=== PATIENT | female | born 1995 | race Caucasian/White ===

== ENCOUNTER 2021-11-24 09:08 | Emergency (ER) | payer OTHER ==
[2021-11-24 10:55] LABS: Bilirubin Neg (Negative); Blood, Urine Negative (Negative); Clarity Cloudy (Clear); Glucose, Urine (Dipstick) Normal (Negative); Ketone, Urine 150 mg/dL (Negative); Leukocyte 100 (Negative); Nitrite Negative (Negative); Protein, Urine (Dipstick) 30 mg/dl (Neg-Trace); Specific Gravity, Urine 1.015 (1.002-1.036); Urobilinogen Normal mg/dL (Less than 2)
[2021-11-24 10:59] LABS: Pregnancy Test - Urine (BHCG) POSITIVE (Negative); Pregu Control Background? CLEAR/WHITE (CLR/WHITE); Pregu Control Bar Appear? YES (CONTROL BAR); Specific Gravity 1.015 (1.002-1.036)
[2021-11-24] MEDS ORDERED: Acetaminophen 500 MG TAB ONE (10:59)
[2021-11-24] MEDS ORDERED: Ondansetron PF 4 MG/2 ML Vial ONE (10:59)
[2021-11-24 11:14] LABS: Bacteria/HPF 1+ HPF (None Seen); RBC/HPF 0-3 HPF (0-3); Squamous Epithelial 21-50 HPF (0-3)
[2021-11-24 11:28] LABS: #Monocytes 0.4 10x3/uL (0.0-1.1); #Neutrophils 8.2 10x3/uL (1.5-8.4); %Basophils 0.2 % (0.0-2.0); %Eosinophils 0.1 % (0.0-6.0); %Lymphocytes 13.1 % (18.0-47.0); %Monocytes 4.1 % (0.0-10.0); %Neutrophils 82.1 % (40.0-75.0); Hemoglobin 12.4 g/dL (12.0-15.5); Mean Corpuscular HGB CONC 34.9 g/dL (32.0-36.0); Mean Corpuscular Hemoglobin 30.7 pg (27.0-33.0); Mean Corpuscular Volume 87.9 fl (81.6-98.3); Mean Platelet Volume 10.4 fl (7.4-10.4); Platelet Count 256 10x3/uL (150-450); RBC Distribution Width 12.6 % (11.5-14.5); Red Blood Cell (RBC) Count 4.04 10x6/uL (3.90-5.03)
[2021-11-24 11:40] LABS: ALT (SGPT) 11 U/L (8-55); AST (SGOT) 15 U/L (5-34); Albumin 3.6 g/dL (3.5-5.0); Alkaline Phosphatase 57 U/L (40-110); Anion Gap 12 mmol/L (10-20); BUN (Urea Nitrogen) 8 mg/dL (7.0-18.7); Bilirubin, Total 0.3 mg/dL (0.2-1.2); Calc. Creatinine Clearance 0 mL/min (70-130); Calcium 8.5 mg/dL (7.8-10.44); Carbon Dioxide 21 mmol/L (22-29); Chloride 107 mmol/L (98-107); Globulin 2.9 g/dL (2.4-3.5); Glucose 85 mg/dL (70-105); Potassium 3.8 mmol/L (3.5-5.1); Protein, Total 6.5 g/dL (6.0-8.3); Sodium 136 mmol/L (136-145)
[2021-11-24 12:01] LABS: Lipase Less than 4 U/L (8-78)
[2021-11-24 12:22] LABS: Bilirubin Neg (Negative); Blood, Urine Negative (Negative); Clarity Slightly Cloudy (Clear); Glucose, Urine (Dipstick) Normal (Negative); Ketone, Urine 150 mg/dL (Negative); Leukocyte 25 (Negative); Nitrite Negative (Negative); Protein, Urine (Dipstick) 15 mg/dl (Neg-Trace); Specific Gravity, Urine 1.015 (1.002-1.036); Urobilinogen Normal mg/dL (Less than 2)
[2021-11-24 12:37] LABS: Bacteria/HPF 1+ HPF (None Seen); RBC/HPF None Seen HPF (0-3); WBC/HPF 0-3 HPF (0-3)
== END 2021-11-24 13:24 | disposition home or self-care (01) ==
LOC: CSHERS 09:08
DX: O99.892 Other specified diseases and conditions complicating childbirth (principal); R10.9 Unspecified abdominal pain; O21.1 Hyperemesis gravidarum with metabolic disturbance; E86.0 Dehydration; O99.332 Smoking (tobacco) complicating pregnancy, second trimester; F17.210 Nicotine dependence, cigarettes, uncomplicated; Z3A.16 16 weeks gestation of pregnancy
CPT/HCPCS: 80053; 81003; 81015; 81025; 83690; 85025; 96374; J2405

== ENCOUNTER 2022-12-06 18:45 | Inpatient (IN) | payer OTHER ==
[2022-12-06 18:49] VITALS: BMI 22.5
[2022-12-06] MEDS ORDERED: Acetaminophen 325 MG TAB PO PRN (19:15)
[2022-12-06] MEDS ORDERED: Sodium Chloride 0.9% 1,000 ML IV SCH (19:15)
[2022-12-06] MEDS ORDERED: Ondansetron ODT 4 MG TAB SL PRN (19:15)
[2022-12-06] MEDS ORDERED: Ondansetron PF 4 MG/2 ML Vial IVP PRN (19:15)
[2022-12-06] MEDS: NS 0.9% w/ 20 MEQ KCL 1,000 ML/1,000 ML BAG IV SCH (19:59)
[2022-12-06] MEDS ORDERED: FLU VACC QS2022-23(6MOS UP)/PF 60 MCG/0.5 ML SYRINGE IM ONE (21:45)
[2022-12-07] MEDS ORDERED: Labetalol HCl 100 MG/20 ML VIAL SLOW IVP PRN (08:05)
[2022-12-07] MEDS ORDERED: Communication Order-Pharmacy FS SCH (08:05)
[2022-12-07] MEDS ORDERED: hydrALAZINE 20 MG/ML VIAL SLOW IVP PRN (08:05)
[2022-12-07] MEDS ORDERED: niCARdipine 25 MG in Sodium Chloride 0.9% 250 ML 250 ML IVPB PRN (08:05)
[2022-12-07] MEDS: NS 0.9% w/ 20 MEQ KCL 1,000 ML/1,000 ML BAG IV SCH (08:50)
[2022-12-07 14:56] VITALS: BP 107/77; TEMP 98
[2022-12-07] MEDS ORDERED: Aspirin 325 mg Enteric Coated Tablet PO SCH (18:00)
[2022-12-07] MEDS ORDERED: Atorvastatin Calcium 40 MG TAB PO SCH (21:00)
[2022-12-08] MEDS ORDERED: Aspirin 325 mg Enteric Coated Tablet PO SCH (09:00)
== END 2022-12-07 18:15 | disposition home or self-care (01) | DRG 65 ==
LOC: CSHIMCU 18:45
PROVIDERS: ADMIT Family Medicine; ATTEND Family Medicine
PROC: 4A10X4Z Monitoring of Central Nervous Electrical Activity, External Approach (ICD-10-PCS; principal; 2022-12-07)
DX: I63.9 Cerebral infarction, unspecified (principal); Z92.82 Status post administration of tPA (rtPA) in a different facility within the last 24 hours prior to admission to current facility; F17.210 Nicotine dependence, cigarettes, uncomplicated; F10.129 Alcohol abuse with intoxication, unspecified; F12.90 Cannabis use, unspecified, uncomplicated; G51.0 Bell's palsy; Z98.890 Other specified postprocedural states
CPT/HCPCS: 70450; 70551; 87807; 93005; 93010; 93306; 94760; 95816; 95819; 95957; J3480

== ENCOUNTER 2024-01-08 21:25 | Observation (INO) | payer SELFPAY ==
[2024-01-08] MEDS ORDERED: Promethazine HCl 25 MG/ML VIAL IM PRN (22:46)
[2024-01-08] MEDS ORDERED: Zolpidem Tartrate 5 MG TAB PO PRN (22:46)
[2024-01-08 23:18] VITALS: BMI 20.9
[2024-01-08] MEDS: Ketorolac Tromethamine 30 MG (1 mL) VIAL IVP SCH (23:54)
[2024-01-08] MEDS: Lactated Ringer's 1,000 ML IV SCH (23:59)
[2024-01-09 05:02] LABS: Hematocrit 27.8 % (34.9-44.5); Hemoglobin 9.7 g/dL (12.0-15.5); Mean Corpuscular HGB CONC 34.9 g/dL (32.0-36.0); Mean Corpuscular Hemoglobin 32.1 pg (27.0-33.0); Mean Corpuscular Volume 92.1 fl (81.6-98.3); Mean Platelet Volume 11.9 fl (7.4-10.4); Platelet Count 305 10x3/uL (150-450); RBC Distribution Width 13.6 % (11.5-14.5); Red Blood Cell (RBC) Count 3.02 10x6/uL (3.90-5.03); White Blood Cell (WBC) Count 9.5 10x3/uL (3.5-10.5)
[2024-01-09] MEDS ORDERED: FLU VACC QS2023-24(6MOS UP)/PF 60 MCG/0.5 ML SYRINGE IM ONE (09:00)
[2024-01-09] MEDS: Morphine 4 MG/ML VIAL SLOW IVP PRN (09:21)
[2024-01-09 10:22] LABS: Hematocrit 27.6 % (34.9-44.5); Hemoglobin 9.7 g/dL (12.0-15.5); Mean Corpuscular HGB CONC 35.1 g/dL (32.0-36.0); Mean Corpuscular Volume 91.1 fl (81.6-98.3); Mean Platelet Volume 10.9 fl (7.4-10.4); Platelet Count 207 10x3/uL (150-450); RBC Distribution Width 13.4 % (11.5-14.5); Red Blood Cell (RBC) Count 3.03 10x6/uL (3.90-5.03); White Blood Cell (WBC) Count 9.5 10x3/uL (3.5-10.5)
[2024-01-09] MEDS ORDERED: Morphine 4 MG/ML VIAL SLOW IVP PRN (14:44)
[2024-01-09 15:13] LABS: Hematocrit 27.2 % (34.9-44.5); Hemoglobin 9.2 g/dL (12.0-15.5)
[2024-01-09] MEDS: HYDROcodone/Acetaminophen 5/325 mg Tablet PO PRN (15:36)
[2024-01-09] MEDS ORDERED: Bisacodyl 5 MG TAB PO PRN (17:15)
[2024-01-09] MEDS: Simethicone Chewable 80 MG TAB PO PRN (17:31)
[2024-01-09] MEDS: Ondansetron PF 4 MG/2 ML Vial IVP PRN (20:32)
[2024-01-10 04:51] LABS: Hematocrit 25.9 % (34.9-44.5); Hemoglobin 8.8 g/dL (12.0-15.5); Mean Corpuscular Hemoglobin 30.8 pg (27.0-33.0); Mean Corpuscular Volume 90.6 fl (81.6-98.3); Mean Platelet Volume 10.8 fl (7.4-10.4); Platelet Count 185 10x3/uL (150-450); RBC Distribution Width 13.2 % (11.5-14.5); Red Blood Cell (RBC) Count 2.86 10x6/uL (3.90-5.03); White Blood Cell (WBC) Count 7.3 10x3/uL (3.5-10.5)
[2024-01-10 07:46] VITALS: BP 108/71; TEMP 98.8
== END 2024-01-10 08:20 | disposition home or self-care (01) ==
LOC: CSHPP 22:30
PROVIDERS: ADMIT Obstetrics & Gynecology; ATTEND Obstetrics & Gynecology
DX: N83.202 Unspecified ovarian cyst, left side (principal); D63.8 Anemia in other chronic diseases classified elsewhere; F12.90 Cannabis use, unspecified, uncomplicated; F17.210 Nicotine dependence, cigarettes, uncomplicated; Z88.1 Allergy status to other antibiotic agents
CPT/HCPCS: 36415; 76856; 85027; 86850; 86900; 86901; 96361; 96374; 96375; 96376; G0378; J1885; J2270; J2405; J7120